=== PATIENT | female | born 1975 | race Caucasian/White ===

== ENCOUNTER → 2018-01-17 | Outpatient (CLI) | payer OTHER ==
[~2018-01-17] MED LIST: ALBU90OI INH; ALBU90OI6 INH; AMOCLA500 PO; AMOX500 PO; AZIT500 PO; CEPH500 PO; CYCL10 PO; DOXY100 PO; ERYT250 PO; HYDACE5 PO; HYDGUAL120 PO; IBUP800 PO; NEOPOLHYDS OT; OXYACE5T PO; PRED20 PO; PROM25 PO; SULTRIDS PO; [UNRECOGNIZED DRUG - OTHER]
[2018-01-18 14:14] LABS: Candida species (DNA Probe) Negative (NEGATIVE); G. vaginalis (DNA Probe) Positive (NEGATIVE); T. vaginalis (DNA Probe) Negative (NEGATIVE)
== END ==
LOC: LAB EV 13:57 → LAB SHORT 13:57
PROVIDERS: Physician Assistant
DX: N76.0 Acute vaginitis (principal); Z20.9 Contact with and (suspected) exposure to unspecified communicable disease
CPT/HCPCS: 87480; 87510; 87660

== ENCOUNTER 2019-06-22 05:37 | Emergency (ER) | payer OTHER ==
[~2019-06-22] VITALS: Ht 170.2 cm; Wt 61.2 kg
[2019-06-22] MEDS ORDERED: HYDR1TAB94 PO (07:21)
[2019-06-22] MEDS ORDERED: ONDA4ODT SL (07:21)
[2019-06-22] MEDS ORDERED: IBUP400 PO (07:21)
== END 2019-06-22 08:14 | disposition home or self-care (01) ==
LOC: ER 05:37
DX: M25.561 Pain in right knee (principal); F17.200 Nicotine dependence, unspecified, uncomplicated
CPT/HCPCS: 73562-RT; 96372; 99283-25; A9270-GY; J1885